=== PATIENT | male | born 1990 | race African-American/Black ===

== ENCOUNTER 2019-06-04 11:16 | Emergency (ER) | payer SELFPAY ==
[~2019-06-04] VITALS: Ht 177.8 cm; Wt 81.7 kg
[2019-06-04 11:41] VITALS: BP 143/76
[2019-06-04] MEDS: LIDO:MAALOX 1:1 20 ML SINGLE DOSE. PO ONE (11:53)
--- NOTE | 2019-06-04 12:00 | PHYS DOC ---
Past History Past Medical History: No Pertinent History Past Surgical History: No Surgical History Alcohol Use: None General Adult EDM: Chief Complaint: SHORTNESS OF BREATH HPI: HPI: Patient is a 28 year old male who presents with c/o diffuse colicky abdominal pain that started early this morning shortly after eating [employer] pizza with associated loose watery diarrhea. Reports pain made him feel short of breath. Patient states symptoms lasted for approximately 15 minutes and improved with diarrhea. Recurred 2 more times after that but resolved upon arrival to the ED. Patient states he did drink alcohol last night and smokes marijuana daily. No prior history of cannabinoid hyperemesis. Review of systems: Denies associated fever, chills, cough, chest pressure heaviness or tightness, melena, hematochezia, hemoptysis, nausea, vomiting, neck pain, neurologic deficits or urinary complaints. Current Medications: Current Meds: Current Medications Medications (Trade) Dose Ordered Sig/Sabiha Start Time Stop Time Status Last Admin Dose Admin Multi-Ingredient Mouthwash/Gargle (Gi Cocktail) 20 ml 1X ONCE 06/04/19 12:00 06/04/19 12:01 UNV Allergies: Allergies: Allergies Coded Allergies Type Severity Reaction Last Updated Verified No Known Drug Allergies 06/04/19 No Physical Exam: PE: Constitutional: Well developed, well nourished, no acute distress, non-toxic appearance afebrile HENT: Normocephalic, atraumatic, oropharynx moist, no oral exudates, Eyes: EOMI, conjunctiva normal, no discharge. Neck: Normal range of motion, no tenderness, supple, no stridor. Cardiovascular:Heart rate regular rhythm, no murmur Lungs & Thorax: Bilateral chest rise, speaking in full sentences Abdomen: soft, no tenderness, no masses, no pulsatile masses, no reproducible tenderness to palpation Skin: Warm, dry, no erythema, no rash. Back: No tenderness, no CVA tenderness. Extremities: No tenderness, no cyanosis, no clubbing, ROM intact, no edema. Neurologic: Alert and oriented X 3, normal motor function, normal sensory function, no focal deficits noted, ambulating with steady gait Psychologic: Affect normal, judgement normal, mood normal. Current Patient Data: Vital Signs: Vital Signs Date Time Temp Pulse Resp B/P (MAP) Pulse Ox O2 Delivery O2 Flow Rate FiO2 06/04/19 11:41 98.4 67 16 143/76 (98) 99 Room Air Radiology/Procedures: Radiology/Procedures: PROCEDURE: CHEST AP ONLY EXAM: CHEST AP ONLY INDICATION: Epigastric pain. TECHNIQUE: Single view COMPARISON: None FINDINGS: The heart size is normal. The great vessels appear unremarkable. There is no hilar or mediastinal mass. The lungs are clear. There is no pleural effusion or pneumothorax. There are no significant osseous abnormalities. IMPRESSION: No active cardiopulmonary disease. Electronically signed by: Elissa Abdullahi MD (06/04/2019 12:18 PM) [id number] Impressions: Concern for diffuse colicky abdominal pain with 1 loose bowel movement. Patient has been asymptomatic in the ED. Was given a GI cocktail. Pain has not recurred. Will DC with Pepcid for the next 7 days. Differential includes GERD versus viral gastroenteritis. Low suspicion for life-threatening sepsis, pancreatitis or surgical abdomen. Pt calm and in no distress. Strict ED return precautions given for abdominal pain recurrence or severe dehydration. Encouraged PMD follow-up in 24 to 48 hours. All of patient's questions were answered and he was stable at time of discharge. Course & Med Decision Making: Course & Med Decision Making Pertinent Labs and Imaging studies reviewed. (See chart for details) [] Dragon Disclaimer: Draggeorge Disclaimer: This electronic medical record was generated, in whole or in part, using a voice recognition dictation system. Departure Departure: Impression: Primary Impression: Abdominal pain Additional Impression: Diarrhea Disposition: 01 HOME, SELF-CARE Condition: STABLE Referrals: PCP,NO (PCP) Patient Instructions: Abdominal Pain (Nonspecific) Scripts Famotidine (PEPCID) 20 Mg Tablet 1 TAB PO BID for abdominal pain for 7 Days, #14 TAB 0 Refills Prov: BURTON FONSECA DO 06/04/19 BURTON FONSECA DO Jun 04, 2019 12:00
--- NOTE | 2019-06-04 12:21 | RAD ---
EXAM: CHEST AP ONLY INDICATION: Epigastric pain. TECHNIQUE: Single view COMPARISON: None FINDINGS: The heart size is normal. The great vessels appear unremarkable. There is no hilar or mediastinal mass. The lungs are clear. There is no pleural effusion or pneumothorax. There are no significant osseous abnormalities. IMPRESSION: No active cardiopulmonary disease. Electronically signed by: Elissa Abdullahi MD (06/04/2019 12:18 PM) [id number]
[2019-06-04] MEDS ORDERED: FAMO-63 PO (12:49)
== END 2019-06-04 12:55 | disposition home or self-care (01) ==
LOC: ER 11:16
DX: R19.7 Diarrhea, unspecified (principal); R10.84 Generalized abdominal pain; F12.10 Cannabis abuse, uncomplicated
CPT/HCPCS: 71045; 99283

== ENCOUNTER 2020-05-08 07:52 | Emergency (ER) | payer SELFPAY ==
[~2020-05-08] VITALS: Ht 177.8 cm; Wt 81.7 kg
[2020-05-08 07:52] VITALS: BP 131/87
[~2020-05-08 07:52] MED LIST: FAMO-63 PO
[2020-05-08] MEDS ORDERED: BENZOCAINE 20% ORAL GEL 11.9GM TUBE. TP PRN (08:15)
[2020-05-08] MEDS ORDERED: KETOROLAC 60 MG/2 ML VIAL. IM ONE (08:15)
--- NOTE | 2020-05-08 08:16 | PHYS DOC ---
Past History Past Medical History: No Pertinent History Past Surgical History: No Surgical History Alcohol Use: None General Adult EDM: Chief Complaint: DENTAL PROBLEM HPI: HPI: 29-year-old male who denies any significant past medical history presents the ED with complaints of right upper dental tooth pain that started just prior to arrival after patient was eating ice cream and had significant pain. Patient states he broke this tooth about a month and a half ago. Was flossing earlier tonight and gums/tooth started to bleed. Reports pain initiated with cold ice cream. Has no dental insurance. Denies any associated headache, neck stiffness, neck pain, head or neck swelling, speech changes, drooling, sore throat, blurry vision no neurologic deficits. Review of Systems: Review of Systems: Constitutional: Denies fever or chills Eyes: Denies change in visual acuity HENT: Denies nasal congestion or sore throat Respiratory: Denies cough or shortness of breath Cardiovascular: Denies chest pain or edema GI: Denies abdominal pain, nausea, vomiting, bloody stools or diarrhea : Denies dysuria Musculoskeletal: Denies back pain or joint pain Integument: Denies rash Neurologic: Denies headache, focal weakness or sensory changes Endocrine: Denies polyuria or polydipsia Lymphatic: Denies swollen glands Psychiatric: Denies depression or anxiety Allergies: Allergies: Allergies Coded Allergies Type Severity Reaction Last Updated Verified No Known Drug Allergies 06/04/19 No Physical Exam: PE: Constitutional: Well developed, well nourished, no acute distress, non-toxic appearance. HENT: Normocephalic, atraumatic, approximately tooth #4 5 with 50 to 70% dental decay-1 mm area of blood around the gingival line, cannot fully appreciate any red pulp-similar to the presentation on opposite upper tooth, poor dentition, Eyes: EOMI, conjunctiva normal, no discharge. Neck: Normal range of motion, supple, no nuchal rigidity Cardiovascular: S1/2 present, regular rhythm Lungs & Thorax: Speaking in full sentences, bilateral equal chest rise, no tachypnea or increased work of breathing Abdomen: soft, no tenderness, Skin: Warm, dry, no erythema, no rash. [] Extremities: No tenderness, no cyanosis, Neurologic: Alert and oriented X 3, normal motor function, normal sensory function, no focal deficits noted. [] Psychologic: Affect normal, judgement normal, mood normal. [] EKG: EKG: [] Radiology/Procedures: Radiology/Procedures: [] Heart Score: C/O Chest Pain: No Risk Factors: Risk Factors: DM, Current or recent (<one month) smoker, HTN, HLP, family history of CAD, obesity. Risk Scores: Score 0 - 3: 2.5% MACE over next 6 weeks - Discharge Home Score 4 - 6: 20.3% MACE over next 6 weeks - Admit for Clinical Observation Score 7 - 10: 72.7% MACE over next 6 weeks - Early Invasive Strategies Course & Med Decision Making: Course & Med Decision Making Pertinent Labs and Imaging studies reviewed. (See chart for details) Concern for pulpitis, will cover for ramon fracture #3 with clindamycin and urgent dental follow-up within the next 24 hours. Patient's pain tolerated with Orajel in the ED and patient was educated on this medication, no more than 4 times a day application. Patient declined dental block. Will discharge home with strict ED return precautions were given for fever, head and neck swelling, neurologic deficits, speech changes, difficulties controlling secretions, blurry vision, headache or neck stiffness. Encouraged urgent outpatient follow-up with PMD and urgent 24-hour dental [id number] is given. Life-threatening processes were considered but are low suspicion at this time, given history, physical exam and ED workup. Pt was educated on all prescription medications and adverse effects. All patient's questions were answered and pt was stable at time of discharge. Life/limb-threatening differential includes but is not limited to, Quinten's angina, infection (periodontal or peritonsillar abscess, retropharyngeal abscess, Vincents angina, ANUG, pharyngeal/lumber racker/buccal space infection), trauma or fracture, dental fracture/subluxation/avulsion, dental bleeding or hemorrhage/DIC, pulpitis, alveolar osteitis or neoplasm I spoken with the patient and her caregivers. I explained the patient's condition, diagnoses and treatment plan based on the information available to me at this time. I have answered the patient and her caregiver's questions and addressed any concerns. The patient and her caregivers have a good understanding of patient's diagnosis, condition and treatment plan as can be expected at this point. Vital signs have been stable. Patient's condition is stable and appropriate for discharge from the emergency department. Patient will pursue further outpatient evaluation with primary care physician or other designated or consulting physician as outlined in the discharge instructions. The patient and/or caregivers are agreeable to this plan of care and follow-up instructions have been explained in detail. The patient and/or caregivers have received these instructions in written form and have expressed an understanding of the discharge instructions. The patient and/or caregivers are aware that any significant change of condition or worsening of symptoms should prompt immediate return to this or the closest emergency department or [facility] Disclaimer: Anderson Disclaimer: This electronic medical record was generated, in whole or in part, using a voice recognition dictation system. Departure Departure: Impression: Primary Impression: Fractured tooth Additional Impression: Acute pulpitis Disposition: 01 DC HOME SELF CARE/HOMELESS Condition: STABLE Referrals: PCP,NO (PCP) FOLLOW UP WITH FAMILY MEDICINE: Family Medicine Address: [address] [place] [address] Patient Instructions: Dental Caries, Tooth Fracture Additional Instructions: URGENT FOLLOWUP WITH YOUR DENTIST IN 24 HOURS REGARDING DENTAL FRACTURE VS PULPITIS EMERGENCY DEPARTMENT GENERAL DISCHARGE INSTRUCTIONS Thank you for coming to [facility] (ED) today and trusting us with you care. We trust that you had a positivie experience in our Emergency Department. If you wish to speak to the department management, you may call the director at [phone]. YOUR FOLLOW UP INSTRUCTIONS ARE FOLLOWS: 1. Do you have a private Doctor? If you do not have a private doctor, please ask for a resource list of physicians or clinics that may be able to assist you with f ollow up care. 2. The Emergency Physician has interpreted your x-rays. The X-Ray specialist will also review them. If there is a change in the findings, you will be notified in 48 hours when at all possible. 3. A lab test or culture has been done, your results will be reviewed and you will be notified if you need a change in treatment. ADDITIONAL INSTRUCTIONS AND INFORMATION: 1. Your care today has been supervised by a physician who is specially trained in emergency care. Many problems require more than one evaluation for a complete diagnosis and treatment. We recommend that you schedule your follow up appointment as recommended to ensure complete treatment of you illness or injury. If you are unable to obtain follow up care and continue to have a problem, or if your condition worsens, we recommend that you return to the ED. 2. We are not able to safely determine your condition over the phone nor are we able to give sound medical advice over the phone. For these safety reasons, if you call for medical advice we will ask you to come to the ED for further evaluation. 3. If you have any questions regarding these discharge instructions please call the ED at [phone]. SAFETY INFORMATION: In the interest of safety, wellness, and injury prevention; we encourage you to wear your sealbelt, if you smoke; quite smoking, and we encourage family to use a protect bahman helmet for bicycling and other sporting events that present an increased risk for head injury. IF YOUR SYMPTOMS WORSEN OR NEW SYMPTOMS DEVELOP, OR YOU HAVE CONCERNS ABOUT YOUR CONDITION; OR IF YOUR CONDITION WORSENS WHILE YOU ARE WAITING FOR YOUR FOLLOW UP APPOINTMENT; EITHER CONTACT YOUR PRIMARY CARE DOCTOR, THE PHYSICIAN WHOSE NAME AND NUMBER YOU WERE GIVEN, OR RETURN TO THE ED IMMEDIATELY. Scripts Clindamycin Hcl (CLINDAMYCIN HCL) 150 Mg Capsule 3 CAP PO TID for dental infection for 10 Days, #90 CAP Prov: BURTON FONSECA DO 05/08/20 BURTON FONSECA DO May 08, 2020 08:16
[2020-05-08] MEDS ORDERED: KETOROLAC 30 MG/ML VIAL. ONE (08:18)
[2020-05-08] MEDS ORDERED: BUPIVACAINE PF 0.75% 10 ML VIAL ONE (08:26)
[2020-05-08] MEDS ORDERED: BUPIVACAINE MPF 0.25% 10 ML VIAL. ONE (08:26)
[2020-05-08] MEDS ORDERED: BUPIVACAINE MPF 0.5% 30 ML VIAL. IJ ONE (08:30)
[2020-05-08] MEDS ORDERED: KETOROLAC 30 MG/ML VIAL. IM ONE (08:30)
[2020-05-08] MEDS: BUPIVACAINE PF 0.75% 10 ML VIAL IJ ONE (08:30)
[2020-05-08] MEDS ORDERED: CLIN150C15 PO (08:50)
== END 2020-05-08 08:53 | disposition home or self-care (01) ==
LOC: ER 07:52
DX: S02.5XXA Fracture of tooth (traumatic), initial encounter for closed fracture (principal); K04.01 Reversible pulpitis; K02.9 Dental caries, unspecified; X58.XXXA Exposure to other specified factors, initial encounter; Y93.89 Activity, other specified; Y92.89 Other specified places as the place of occurrence of the external cause; Y99.8 Other external cause status
CPT/HCPCS: 96372; 99283; J1885; J3490